=== PATIENT | female | born 1980 | race Caucasian/White ===

== ENCOUNTER → 2017-11-06 | Outpatient (CLI) | payer OTHER | LOC: BMCIMAGING 13:05 | PROVIDERS: ATTEND Internal Medicine | DX: M25.542 Pain in joints of left hand (principal) ==

== ENCOUNTER 2018-07-15 | Emergency (ER) | payer OTHER | END 2018-07-15 11:40 | disposition home or self-care (01) | DX: R00.2 Palpitations (principal) ==